=== PATIENT | male | born 1965 | race African-American/Black ===

== ENCOUNTER 2024-09-29 10:13 | Inpatient (IN) | payer BC, OTHER ==
[~2024-09-29] VITALS: Ht 175.3 cm; Wt 90.1 kg
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
[2024-09-29 10:40] VITALS: PULSE 78; RESP 15; O2SAT 95
[2024-09-29] MEDS: ONDANSETRON HCL 4 MG/2 ML VIAL IV ONE (10:53)
[2024-09-29] MEDS: MORPHINE SULFATE 4 MG/ML SYR/VIAL IV ONE (10:54)
--- NOTE | 2024-09-29 11:52 | DVH ---
XY R SHOULDER 2+ VIEW XRAY INDICATION: trauma TECHNICAL DATA: 2 views were obtained of the right shoulder. COMPARISON: None FINDINGS: Lateral clavicle fracture. The glenohumeral joint is normally maintained. The acromioclavicular joint appears normal. The humeral head is not high riding. Adjacent soft tissues are within normal limits. IMPRESSION: Lateral clavicle fracture.
--- NOTE | 2024-09-29 11:53 | DVH ---
XY R CLAVICLE COMPLETE XRAY, HISTORY: trauma TECHNICAL DATA: AP and AP cephalic views were obtained of the right clavicle. COMPARISON: None FINDINGS: Lateral clavicle fracture. The acromioclavicular joint appears preserved. . IMPRESSION: Lateral clavicle fracture with override.
--- NOTE | 2024-09-29 11:53 | DVH ---
XY R KNEE 3V XRAY, INDICATION: trauma TECHNICAL DATA: Frontal and lateral views were obtained of the right knee. COMPARISON: None FINDINGS: Comminuted, displaced proximal lateral tibia fracture. Medial, lateral and patellofemoral compartment joint spaces are otherwise maintained. Patella sylwia. Alignment is otherwise anatomic. Soft tissues are within normal limits. No joint effusion is demonstrated. IMPRESSION: Comminuted, displaced proximal lateral tibia fracture.
--- NOTE | 2024-09-29 11:58 | DVH ---
XY R TIB FIB XRAY, INDICATION: trauma TECHNICAL DATA: Frontal and lateral views were obtained of the right leg. COMPARISON: None FINDINGS: Comminuted, displaced proximal lateral tibia fracture. Soft tissues are normal. IMPRESSION: Comminuted, displaced proximal lateral tibia fracture.
[2024-09-29 12:30] LABS: Chloride 105 mmol/L (98-107); Potassium 3.8 mmol/L (3.5-5.1); Sodium 142 mmol/L (136-145)
[2024-09-29 12:31] LABS: Anion Gap 10 (5-15); Calcium 10.1 mg/dL (8.7-10.4); Carbon Dioxide 27 mmol/L (20-31); Hematocrit 46.5 % (41.0-53.0); Hemoglobin 16.2 g/dL (13.5-17.5); Mean Corpuscular Hemoglobin 31.0 pg (28.0-32.0); Mean Corpuscular Volume 88.9 fL (80.0-100.0); Nucleated Red Blood Cells % 0.0 %
[2024-09-29 12:36] LABS: BUN/Creatinine Ratio 13.1 (10.0-20.0); Blood Urea Nitrogen 16 mg/dL (9-23); Glucose 124 mg/dL (74-106)
[2024-09-29] MEDS: fentaNYL CITRATE 100 MCG/2 ML VL IV ONE (12:57)
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
[2024-09-29] MEDS ORDERED: DOCUSATE SOD 100 MG CAP PO PRN (16:15)
[2024-09-29] MEDS ORDERED: ONDANSETRON HCL 4 MG/2 ML VIAL IV PRN (16:15)
[2024-09-29] MEDS ORDERED: ACETAMINOPHEN 325 MG TAB PO PRN (16:15)
[2024-09-29] MEDS: MORPHINE SULFATE INJ 2 MG/ml SYRG IV PRN (17:06)
[2024-09-29 18:09] VITALS: BP 150/91; PULSE 75; RESP 18; TEMP 97.8; O2SAT 98
[2024-09-29 20:00] VITALS: PULSE 80; RESP 17; O2SAT 92
[2024-09-29] MEDS: HYDROcodone-ACET 5/325MG TAB PO PRN (20:32)
[2024-09-29 21:00] VITALS: BP 129/84; PULSE 80; RESP 17; TEMP 98.4; O2SAT 92
[2024-09-29] MEDS: SODIUM CHLOR 0.9% PF (SALINE LOCK) 10ML VIAL/SYR IV SCH (22:00)
[2024-09-29] MEDS: SODIUM CHLORIDE 0.9% 1,000 ML IV ONE (23:41)
[2024-09-30] VITALS (7 sets, daily range): BP systolic 136–170; BP diastolic 81–106; PULSE 77–83; RESP 17–20; TEMP 97.9–99.1; O2SAT 90–93
[2024-09-30 05:59] LABS: Urine Protein, UAD Negative (Negative)
[2024-09-30 08:12] LABS: Hematocrit 42.2 % (41.0-53.0); Hemoglobin 14.8 g/dL (13.5-17.5); Mean Corpuscular Hemoglobin 31.4 pg (28.0-32.0); Mean Corpuscular Volume 89.1 fL (80.0-100.0); Nucleated Red Blood Cells % 0.0 %
[2024-09-30 08:30] LABS: Alanine Aminotransferase 24 U/L (7-40); Albumin 4.7 g/dL (3.2-4.8); Alkaline Phosphatase 89 U/L (46-116); Anion Gap 11 (5-15); BUN/Creatinine Ratio 18.2 (10.0-20.0); Blood Urea Nitrogen 20 mg/dL (9-23); Calcium 9.5 mg/dL (8.7-10.4); Carbon Dioxide 25 mmol/L (20-31); Chloride 104 mmol/L (98-107); Potassium 3.7 mmol/L (3.5-5.1); Sodium 140 mmol/L (136-145); Total Protein 6.7 g/dL (5.7-8.2)
[2024-09-30 08:31] LABS: Bilirubin, Total 0.8 mg/dL (0.2-1.0)
[2024-09-30 08:32] LABS: Glucose 120 mg/dL (74-106)
[2024-09-30] MEDS: KETOROLAC TROMETH 30 MG/ML 1ML VIAL IV ONE (11:19)
[2024-09-30] MEDS ORDERED: HYDROmorphone HCL 2 MG/ML VL/or syr IV PRN (13:15)
[2024-09-30] MEDS: ENOXAPARIN SOD 40 MG/0.4 ML SYRINGE SC ONE (15:16)
[2024-09-30] MEDS: METOPROLOL SUCCINATE XL 50 MG TAB PO ONE (15:16)
[2024-09-30] MEDS: HYDROcodone-ACET 10/325MG TAB PO PRN (15:17)
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
--- NOTE | 2024-09-30 17:20 | DVH ---
INDICATION: fracture COMPARISON: XY R KNEE 3V XRAY on DOS: 09/29/24, XY R TIB FIB XRAY on DOS: 09/29/24 TECHNIQUE: CT of the right was performed without contrast. Volume transverse images were obtained and reconstructed in multiple planes using bone and soft tissue algorithms. CONTRAST: None Radiation Dose Information: CT Dose: CTDI volume is 7.75 mGy. Dose-length product is 273.94 mGy*cm FINDINGS: The alignment is normal. The joint spaces are normal. Comminuted fracture lateral tibial plateau Fluid fluid level in the joint effusion posterior to the patella most likely secondary to hemorrhage. IMPRESSION: 1. Comminuted medial tibial plateau fracture extending from the tibial spines the medial metaphysis o f the tibia. 2. Maximum depression is proximally 9-10 mm. 3. Joint effusion containing hemorrhage and effusion or fat. All CT scans at this medical facility ar e performed using dose modulation techniques as appropriate to a performed exam including the followi ng: Automated exposure control was utilized; adjustment of the MA and/or KV according to patient size ; and use of iterative reconstruction technique. HS:Y
[2024-10-01] VITALS (8 sets, daily range): BP systolic 151–166; BP diastolic 90–104; PULSE 78–95; RESP 16–18; TEMP 97.7–99.3; O2SAT 91–94
[2024-10-01 07:32] LABS: Hematocrit 40.2 % (41.0-53.0); Hemoglobin 14.1 g/dL (13.5-17.5); Mean Corpuscular Hemoglobin 31.4 pg (28.0-32.0); Mean Corpuscular Volume 89.5 fL (80.0-100.0); Nucleated Red Blood Cells % 0.1 %
[2024-10-01 07:44] LABS: Alanine Aminotransferase 20 U/L (7-40); Albumin 4.5 g/dL (3.2-4.8); Alkaline Phosphatase 81 U/L (46-116); Anion Gap 10 (5-15); BUN/Creatinine Ratio 18.7 (10.0-20.0); Bilirubin, Total 1.0 mg/dL (0.2-1.0); Blood Urea Nitrogen 20 mg/dL (9-23); Calcium 9.3 mg/dL (8.7-10.4); Carbon Dioxide 26 mmol/L (20-31); Chloride 104 mmol/L (98-107); Potassium 4.3 mmol/L (3.5-5.1); Sodium 140 mmol/L (136-145); Total Protein 6.5 g/dL (5.7-8.2)
[2024-10-01 07:46] LABS: Glucose 120 mg/dL (74-106)
[2024-10-01] MEDS: ENOXAPARIN SOD 40 MG/0.4 ML SYRINGE SC SCH (10:00)
[2024-10-01] MEDS: METOPROLOL SUCCINATE XL 50 MG TAB PO SCH (10:00)
[2024-10-01 13:24] LABS: INR 0.99 (0.9-1.15); Partial Thromboplastin Time 29.3 SEC (24.5-34.5); Prothrombin Time 10.5 sec (9.3-11.8)
--- NOTE | 2024-10-01 14:28 | DVH ---
CHEST RADIOGRAPH Indication: PRE OP Technique: Single frontal view of the chest was obtained Comparison: None FINDINGS: Lines and Tubes: None Lungs: Linear atelectasis right base Pleura: No effusion. No pneumothorax. Cardiomediastinal contours: Unremarkable Bones: Possible minimally displaced right clavicle fracture. IMPRESSION: 1. No infiltrates or effusions 2. Possible minimally displaced right clavicle fracture. 3. Scarring versus linear atelectasis right base
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
[2024-10-01] MEDS: METOPROLOL SUCCINATE XL 50 MG TAB PO ONE (21:42)
[2024-10-02 01:00] VITALS: BP 131/98; PULSE 94; RESP 18; TEMP 97.8; O2SAT 93
[2024-10-02 05:00] VITALS: BP 129/86; PULSE 82; RESP 18; TEMP 98.6; O2SAT 92
[2024-10-02 06:43] LABS: Hematocrit 39.2 % (41.0-53.0); Hemoglobin 13.7 g/dL (13.5-17.5); Mean Corpuscular Hemoglobin 31.1 pg (28.0-32.0); Mean Corpuscular Volume 89.0 fL (80.0-100.0); Nucleated Red Blood Cells % 0.0 %
[2024-10-02 06:54] LABS: Alanine Aminotransferase 16 U/L (7-40); Albumin 4.4 g/dL (3.2-4.8); Alkaline Phosphatase 74 U/L (46-116); Anion Gap 9 (5-15); BUN/Creatinine Ratio 17.4 (10.0-20.0); Bilirubin, Total 0.9 mg/dL (0.2-1.0); Blood Urea Nitrogen 19 mg/dL (9-23); Calcium 9.6 mg/dL (8.7-10.4); Carbon Dioxide 27 mmol/L (20-31); Chloride 104 mmol/L (98-107); Potassium 4.4 mmol/L (3.5-5.1); Sodium 140 mmol/L (136-145); Total Protein 6.6 g/dL (5.7-8.2)
[2024-10-02 07:07] LABS: Glucose 115 mg/dL (74-106)
[2024-10-02 09:00] VITALS: BP 153/97; PULSE 79; RESP 18; TEMP 98.2; O2SAT 95
--- NOTE | 2024-10-02 12:46 | DVHPN2 ---
Reviewed: Care Plan, H&P, Labs, Medications, Previous Orders, Radiology Changes from previous H/P or p: No Changes Objective Vitals Vital Signs Date Time Temp Pulse Resp B/P (MAP) Pulse Ox O2 Delivery O2 Flow Rate FiO2 10/02/24 09:55 82 158/102 10/02/24 09:00 98.2 18 95 98.2 10/02/24 07:30 Room Air* 0 21 Intake/Output Intake and Output 10/02/24 07:00 Intake Total 400 ml Output Total 975 ml Balance -575 ml Intake Oral 400 ml Output Urine Total 975 ml # Voids 1 Medications Current Medications Medications Dose Ordered Sig/Hannah Route Start Time Stop Time Status Last Admin Dose Admin Sodium Chloride 10 ml Q8HR IV 09/29/24 22:00 10/02/24 05:41 10 ML Docusate Sodium 100 mg BIDPRN PRN PO 09/29/24 16:15 Acetaminophen 650 mg Q6HP PRN PO 09/29/24 16:15 Ondansetron HCl 4 mg Q4HP PRN IV 09/29/24 16:15 Morphine Sulfate 2 mg Q6HPRN PRN IV 09/29/24 16:45 Hold 09/30/24 01:39 2 MG Acetaminophen/ Hydrocodone Bitart 1 tab Q6HP PRN PO 09/30/24 13:15 10/02/24 09:54 1 TAB Hydromorphone HCl 0.5 mg Q4HPRN PRN IV 09/30/24 13:15 Enoxaparin Sodium 40 mg DAILY SC 10/01/24 10:00 10/02/24 09:55 40 MG Metoprolol Succinate 50 mg DAILY PO 10/01/24 10:00 10/02/24 09:55 50 MG Laboratory Results Laboratory Tests 10/02/24 06:03 Chemistry Test 10/02/24 06:03 Albumin 4.4 g/dL (3.2-4.8) Calcium Level 9.6 mg/dL (8.7-10.4) Total Protein 6.6 g/dL (5.7-8.2) Coagulation Test 10/01/24 12:52 Prothrombin Time 10.5 sec (9.3-11.8) Prothrombin Time INR 0.99 (0.9-1.15) Activated Partial Thromboplast Time 29.3 SEC (24.5-34.5) LFT Test 10/02/24 06:03 Alanine Aminotransferase (ALT) 16 U/L (7-40) Alkaline Phosphatase 74 U/L (46-116) Aspartate Amino Transferase (AST) 19 U/L (13-40) Total Bilirubin 0.9 mg/dL (0.2-1.0) Urinalysis Test 09/30/24 05:25 Urine Color Yellow (Yellow) Urine Clarity Clear (Clear) Urine pH 6.0 (5.0-9.0) Urine Specific [place] 1.026 (1.001-1.035) Urine Protein Negative (Negative) Urine Ketones Negative (Negative) Urine Blood Negative /uL (Negative) Urine Nitrite Negative (Negative) Urine Bilirubin Negative (Negative) Urine Urobilinogen Normal mg/dL (Negative) Urine Leukocyte Esterase Negative /uL (Negative) Urine RBC 3 /hpf (0 - 3) Urine Microscopic WBC < 1 /HPF (0-3) Urine Squamous Epithelial Cells Few /hpf (<5) Urine Bacteria None seen /hpf (None Seen) Urine Glucose Normal mg/dL (Normal) Labs and/or images reviewed: Labs reviewed by me, Image(s) reviewed by me Assessment/Plan Assessment/Plan Covering for Dr Gresham 1. Right right closed tibial fracture orthopedic advised outpatient follow up next Tuesday for surgery 2. Right clavicle fracture 3. Right knee joint effusion/hemorrhage 4. Status post mechanical fall 5. Hypertension Patient is requesting to be discharged today Plan discussed with: Patient Date of Service: Oct 02, 2024 Billing Provider: SHAYY BRAR MD Common Visit Codes: [id number] INP/OBS CARE(HIGH) SHAYY BRAR MD Oct 02, 2024 12:46
[2024-10-02] MEDS ORDERED: HYDR-4798 PO (12:48)
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
[2024-10-02 13:00] VITALS: BP 146/90; PULSE 67; RESP 17; TEMP 97.5; O2SAT 95
[2024-10-02 15:03] VITALS: BP 146/90; PULSE 67; RESP 17; TEMP 97.5; O2SAT 95
== END 2024-10-02 17:35 | disposition home health service (06) | DRG 563 ==
LOC: ER 10:13 → EDBD 10:13 → OVERFLOW 16:11 → WEST WING 17:20
PROVIDERS: ADMIT Family Medicine; ATTEND Family Medicine
PROC: 2W3LX1Z Immobilization of Right Lower Extremity using Splint (ICD-10-PCS; principal; 2024-09-29)
PROC: 2W38X1Z Immobilization of Right Upper Extremity using Splint (ICD-10-PCS; 2024-09-29)
DX: S42.031A Displaced fracture of lateral end of right clavicle, initial encounter for closed fracture (principal); S82.141A Displaced bicondylar fracture of right tibia, initial encounter for closed fracture; M25.061 Hemarthrosis, right knee; M25.461 Effusion, right knee; I10 Essential (primary) hypertension; F32.A Depression, unspecified; Z79.899 Other long term (current) drug therapy; V89.2XXA Person injured in unspecified motor-vehicle accident, traffic, initial encounter; Y93.55 Activity, bike riding; Y92.89 Other specified places as the place of occurrence of the external cause; Y99.8 Other external cause status
CPT/HCPCS: 29505; 36415; 71045; 73000; 73030; 73562; 73590; 73700; 80048; 80053; 81001; 85025; 85610; 85730; 86850; 86900; 86901; 97163; G0378; J1885; J2405

== ENCOUNTER 2024-10-14 15:51 | Inpatient (IN) | payer BC ==
[~2024-10-14] VITALS: Ht 175.3 cm; Wt 89.5 kg
[~2024-10-14 15:51] MED LIST: HYDR-4798 PO
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
[2024-10-14 17:56] LABS: Hemoglobin 13.5 g/dL (13.5-17.5)
[2024-10-14 17:57] LABS: Chloride 104 mmol/L (98-107); Potassium 3.9 mmol/L (3.5-5.1); Sodium 141 mmol/L (136-145)
[2024-10-14 17:58] LABS: Anion Gap 9 (5-15); Carbon Dioxide 28 mmol/L (20-31)
[2024-10-14 17:59] LABS: Calcium 10.0 mg/dL (8.7-10.4)
[2024-10-14 18:01] LABS: Hematocrit 39.1 % (41.0-53.0); Mean Corpuscular Hemoglobin 30.4 pg (28.0-32.0); Mean Corpuscular Volume 87.9 fL (80.0-100.0); Nucleated Red Blood Cells % 0.1 %
[2024-10-14 18:03] LABS: BUN/Creatinine Ratio 16.5 (10.0-20.0); Blood Urea Nitrogen 19 mg/dL (9-23); Glucose 102 mg/dL (74-106)
[2024-10-14 18:11] LABS: INR 1.0 (0.9-1.15); Partial Thromboplastin Time 27.9 SEC (24.5-34.5); Prothrombin Time 10.6 sec (9.3-11.8)
[2024-10-15 04:49] LABS: Urine Protein, UAD Negative (Negative)
[2024-10-15] MEDS ORDERED: ONDANSETRON HCL 4 MG/2 ML VIAL IV PRN ×2 (05:00→15:00)
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
[2024-10-15] MEDS: SODIUM CHLORIDE 0.9% 1,000 ML IV ONE (08:07)
[2024-10-15 08:13] VITALS: PULSE 93; RESP 16; O2SAT 90
[2024-10-15] MEDS: PANTOPRAZOLE 40 MG/10 ML VIAL INJ IV SCH (10:00)
[2024-10-15 11:32] VITALS: PULSE 92; RESP 16; O2SAT 93
[2024-10-15] MEDS: ceFAZolin 1GM/50ML 50 ML IV ONE (11:57)
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
[2024-10-15 13:25] LABS: Alanine Aminotransferase 29.0 U/L (7-40); Albumin 4.7 g/dL (3.2-4.8); Bilirubin, Direct 0.2 mg/dL (<0.3); Total Protein 7.5 g/dL (5.7-8.2)
[2024-10-15 13:26] LABS: Bilirubin, Total 0.7 mg/dL (0.2-1.0)
[2024-10-15 13:36] LABS: Alkaline Phosphatase 203.0 U/L (46-116)
[2024-10-15] MEDS ORDERED: fentaNYL CITRATE 100 MCG/2 ML VL ONE (13:49)
[2024-10-15] MEDS ORDERED: MIDAZOLAM HCL 2MG/2ML 2ml VIAL (1mg/ml) ONE (13:50)
[2024-10-15] MEDS ORDERED: HYDROmorphone HCL 2 MG/ML VL/or syr IV PRN (15:00)
[2024-10-15] MEDS ORDERED: ONDANSETRON HCL 4 MG/2 ML VIAL ONE (15:05)
[2024-10-15] MEDS ORDERED: LIDOCAINE 2% (LOCAL ANESTH.) PF 5ml SDV ONE (15:05)
[2024-10-15] MEDS ORDERED: ceFAZolin 1GM VL ONE (15:06)
[2024-10-15] MEDS ORDERED: PROPOFOL 10 MG/ML 20 ML IV ONE (15:06)
[2024-10-15 15:29] VITALS: PULSE 75; RESP 13; O2SAT 97
[2024-10-15] MEDS ORDERED: GLYCOPYRROLATE 0.2 MG/ML 1ML VIAL ONE (15:30)
[2024-10-15] MEDS ORDERED: NEOSTIGMINE 1 MG/ML INJ (10mg/10ML VIAL) ONE (15:30)
[2024-10-15 15:45] VITALS: PULSE 73; RESP 15; O2SAT 95
[2024-10-15] MEDS: HYDROmorphone HCL 2 MG/ML VL/or syr IV PRN (15:45)
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
[2024-10-15] MEDS: LIDOCAINE W/ EPINEPHRINE 1% 20ML VIAL ONE (15:52)
--- NOTE | 2024-10-15 15:59 | DVH ---
Indication: ORIF RT TIB Technique: XY C ARM FLUOROSCOPY UP TO 60MINXY Comparison: None FINDINGS/IMPRESSION: 7 seconds of fluoroscopy time. No images submitted for review.
[2024-10-15] MEDS: LACTATED RINGER'S 1,000 ML IV SCH (16:00)
[2024-10-15] MEDS ORDERED: NITROGLYCERIN 0.4 MG SL TAB SL PRN (16:00)
[2024-10-15] MEDS ORDERED: ceFAZolin 1GM/50ML 50 ML IV SCH (16:00)
[2024-10-15] MEDS ORDERED: BISACODYL 5 MG EC TAB PO PRN (16:00)
--- NOTE | 2024-10-15 16:02 | DVH ---
Indication: ORIF RT TIB Technique: XY R TIB FIB XRAYXY Comparison: None FINDINGS/IMPRESSION: Intraoperative radiographs of the right tibia / fibula for placement of fixation screws in the tibial plateau region. 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
[2024-10-15] MEDS: ACETAMINOPHEN IV 100 ML IV ONE (16:37)
[2024-10-15] MEDS: ACETAMINOPHEN IV 1000 MG/100ML (10MG/ML) IV ONE (16:45)
[2024-10-15] MEDS ORDERED: METO-289 PO (16:52)
[2024-10-15] MEDS: CLINDAMYCIN 600MG IV 50 ML IV SCH (17:35)
[2024-10-15] MEDS: HYDROcodone-ACET 5/325MG TAB PO PRN (17:48)
[2024-10-15] MEDS: METOPROLOL SUCCINATE XL 50 MG TAB PO SCH (17:49)
[2024-10-15 20:00] VITALS: PULSE 89; RESP 16; O2SAT 96
[2024-10-15] MEDS: ceFAZolin 1GM/50ML 50 ML IV SCH (20:57)
[2024-10-15 21:00] VITALS: BP 155/96; PULSE 89; RESP 16; TEMP 98.2; O2SAT 96
[2024-10-15] MEDS: hydrALAZINE HCL 20 MG/ML VL IV PRN (21:02)
[2024-10-15] MEDS: DOCUSATE SOD 100 MG CAP PO SCH (22:47)
[2024-10-16] VITALS (8 sets, daily range): BP systolic 132–148; BP diastolic 88–96; PULSE 78–102; RESP 16–19; TEMP 98–98.5; O2SAT 94–97
[2024-10-16 05:41] LABS: Anion Gap 8 (5-15); Carbon Dioxide 28 mmol/L (20-31); Chloride 103 mmol/L (98-107); Potassium 3.9 mmol/L (3.5-5.1); Sodium 139 mmol/L (136-145)
[2024-10-16 05:42] LABS: Calcium 9.4 mg/dL (8.7-10.4)
[2024-10-16 05:43] LABS: Hematocrit 36.5 % (41.0-53.0); Hemoglobin 12.5 g/dL (13.5-17.5); Mean Corpuscular Hemoglobin 30.1 pg (28.0-32.0); Mean Corpuscular Volume 87.8 fL (80.0-100.0); Nucleated Red Blood Cells % 0.0 %
[2024-10-16 05:47] LABS: BUN/Creatinine Ratio 13.1 (10.0-20.0); Blood Urea Nitrogen 14 mg/dL (9-23)
[2024-10-16 05:48] LABS: Glucose 117 mg/dL (74-106)
[2024-10-16] MEDS: MORPHINE SULFATE INJ 2 MG/ml SYRG IV PRN (06:16)
[2024-10-16] MEDS: ENOXAPARIN SOD 40 MG/0.4 ML SYRINGE SC SCH (08:20)
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
[2024-10-16] MEDS ORDERED: DOCU-94 PO (09:27)
[2024-10-16] MEDS ORDERED: PANT40T PO (09:28)
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
[2024-10-17 01:00] VITALS: BP 134/82; PULSE 95; RESP 16; TEMP 99; O2SAT 94
[2024-10-17 05:00] VITALS: BP 154/86; PULSE 83; RESP 16; TEMP 98.2; O2SAT 97
[2024-10-17 06:28] VITALS: BP 137/93; PULSE 94
[2024-10-17 06:28] LABS: Chloride 101 mmol/L (98-107); Potassium 3.8 mmol/L (3.5-5.1); Sodium 138 mmol/L (136-145)
[2024-10-17 06:29] LABS: Anion Gap 10 (5-15); Calcium 9.4 mg/dL (8.7-10.4); Carbon Dioxide 27 mmol/L (20-31)
[2024-10-17 06:34] LABS: BUN/Creatinine Ratio 11.8 (10.0-20.0); Blood Urea Nitrogen 13 mg/dL (9-23)
[2024-10-17 06:53] LABS: Glucose 109 mg/dL (74-106)
[2024-10-17 08:46] VITALS: BP 149/98; PULSE 94; RESP 16; TEMP 97.8; O2SAT 96
--- NOTE | 2024-10-17 11:53 | ECG ---
[facility] Test Date: 2024-10-15 Test Time: 12:19:04 Pat Name: JAMA PETERSEN Department: Room: 0281 B Gender: M Dark Room Attendant: SANDRA Storm : 1965 Requested By: TWIN HUDSON Order Number: [id number] Reading MD: Angel Marie Measurements Intervals [place] Rate: 93 P: 43 WV: 172 QRS: -48 QRSD: 108 T: 16 QT: 382 QTc: 474 Interpretive Statements Normal sinus rhythm Left axis deviation Electronically Signed On 10-18-2024 14:31:09 PDT by Angel Marie Please click the below link to view image of tracing.
[2024-10-17 12:17] VITALS: BP 144/73; PULSE 78; TEMP 36.6
[2024-10-17 13:44] VITALS: BP 138/93; PULSE 91; RESP 17; TEMP 98.4; O2SAT 98
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
[2024-10-17] MEDS ORDERED: IBUP-1453 PO (14:58)
[2024-10-17] MEDS ORDERED: HYDR-4798 PO (16:46)
== END 2024-10-17 16:20 | disposition home health service (06) | DRG 494 ==
LOC: ER 15:51 → OVERFLOW 10-15 04:51 → WEST WING 10-15 10:03
PROVIDERS: ADMIT Student in an Organized Health Care Education/Training Program; ATTEND Orthopaedic Surgery
PROC: 0QSG04Z Reposition Right Tibia with Internal Fixation Device, Open Approach (ICD-10-PCS; principal; 2024-10-15 13:40)
DX: S82.141A Displaced bicondylar fracture of right tibia, initial encounter for closed fracture (principal); S42.024A Nondisplaced fracture of shaft of right clavicle, initial encounter for closed fracture; I10 Essential (primary) hypertension; V98.8XXA Other specified transport accidents, initial encounter; Y93.89 Activity, other specified; Y92.89 Other specified places as the place of occurrence of the external cause; Y99.8 Other external cause status
CPT/HCPCS: 36415; 73590; 76000; 80048; 80076; 81001; 85025; 85610; 85730; 86850; 86900; 86901; 93005; 96365; 96375; 97110; 97116; 97163; G0378; J0131; J0690; J2003; J2250; J2405; J2470; J2704; J3490